=== PATIENT | female | born 1995 | race Caucasian/White ===

== ENCOUNTER 2019-10-12 18:16 | Outpatient (CLI) | payer SELFPAY ==
[2019-10-12] VITALS (16 sets, daily range): BP systolic 0–135; BP diastolic 0–86; PULSE 78–98; RESP 16–18; TEMP 36.9–37.1; BMI 29.0
[2019-10-12] MEDS: lactated ringers 1,000 ML 999 ML IV (18:35)
[2019-10-12] MEDS: miSOPROStol 200 mcg Tablet 800 MCG PR (18:43)
[2019-10-12 18:57] LABS: Basophils % 0.2 %; Eosinophils % 0.3 %; Hematocrit 39.9 % (37.0-47.0); Hemoglobin 13.6 g/dL (11.5-15.3); Lymphocytes % 16.8 %; Mean Corpuscular HGB Conc 34.1 g/dL (30.0-36.0); Mean Corpuscular Hemoglobin 29.3 pg (28.0-34.0); Mean Platelet Volume 10.7 fL (7.4-10.4); Monocytes # 0.9 10^3/uL (0.2-0.9); Monocytes % 7.6 %; Neutrophils # 8.7 10^3/uL (1.8-7.7); Neutrophils % 74.7 %; Nucleated Red Blood Cells % 0 %; Platelet Count 255 10^3/cmm (130-400); Red Blood Count 4.64 10^6/uL (4.1-5.3); Red Cell Distribution Width 13.3 % (12.1-15.1); White Blood Count 11.6 10^3/uL (4.0-10.0)
--- NOTE | 2019-10-12 19:16 | PC.NURSE ---
Previous documentation per Olivia Brown RN incorrect. IV started in left AC at 1820, and right hand at 1835. Fluids running in left AC site, right site PIID.
[2019-10-12] MEDS: lactated ringers 1,000 ML 125 ML IV (19:39)
== END 2019-10-12 21:40 | disposition home or self-care (01) ==
LOC: OPOB 18:29 → OBGYN 20:46 → OPOB 10-13 09:03
PROVIDERS: Visit Provider Obstetrics & Gynecology
DX: O46.90 Antepartum hemorrhage, unspecified, unspecified trimester (principal); Z3A.00 Weeks of gestation of pregnancy not specified
CPT/HCPCS: 36415; 85025; 86850; 86900

== ENCOUNTER 2024-06-10 05:43 | Emergency (ER) | payer SELFPAY ==
[2024-06-10] VITALS (7 sets, daily range): BP systolic 116–147; BP diastolic 73–82; PULSE 65–102; RESP 16; TEMP 37; O2SAT 98–100; BMI 25.0
--- NOTE | 2024-06-10 05:57 | ED_ITS ---
HPI - 2 General: Chief complaint: OB/Uterine Contractions Stated complaint: 12 Weeks Preg\Bleeding Time Seen by Provider: 06/10/24 05:50 History of Present Illness: 28-year-old female G7, P6 006, presents to the ER with complaints of 1 week of vaginal bleeding. Clinical records patient is blood type B-. She has an LMP of March 10, 2024 manage 2012 weeks 1 day. She has not had an ultrasound. No formal OB care. She reports bleeding for the last week it has decreased somewhat. No complications with previous however there is 1 visit to OB infection some bleeding but it is difficult to assess cannot find a specific complaint this time presentation in the notes from that visit. Date of Last Menstrual Period: 03/10/24 Associated symptoms: Deny abdominal pain or dysuria Related Data Home Medications Medication Instructions Recorded Confirmed No Known Home Medications 10/12/19 06/10/24 Allergies Allergy/AdvReac Type Severity Reaction Status Date / Time No Known Allergies Allergy Verified 10/12/19 18:51 Review of Systems 2 Const: Denies: fever(s) or chills Card: Denies: chest pain Resp: Denies: dyspnea GI: Denies: abdominal pain : Denies: dysuria, urinary frequency or urinary urgency Musc: Denies: neck pain or back pain Skin/Breast: Denies: rash [facility] ED 2 Female Reproductive History: Date of last menstrual period: 03/10/24 Physical Exam 2 Const: COMMON NORMALS: no acute distress GENERAL APPEARANCE: cooperative and comfortable ORIENTATION/CONSCIOUSNESS: Yes awake, Yes oriented to person, Yes oriented to place and Yes oriented to time HENMT: COMMON NORMALS: normocephalic, atraumatic and hearing grossly normal bilaterally HEAD & SCALP: normocephalic and atraumatic Resp: COMMON NORMALS: normal respiratory effort, No retractions, No use of accessory muscles and clear to auscultation bilaterally AUSCULTATION: clear to auscultation bilaterally Cardio: COMMON NORMALS: regular rate, regular rhythm and No murmurs present (Cardio) RATE: regular rate RHYTHM: regular rhythm Extremity: COMMON NORMALS: normal to inspection, capillary refill normal, no clubbing, cyanosis or edema, no calf tenderness and no pedal edema Neuro: SENSORIUM/ORIENTATION: Yes oriented to person, Yes oriented to place and Yes oriented to time Skin: COMMON NORMALS: no rashes or lesions noted GENERAL SKIN EXAM: no rashes or lesions noted Course 2 Vital Signs: Vital signs: Vital Signs Temperature 98.6 F 06/10/24 05:45 Pulse Rate 98 06/10/24 10:17 Respiratory Rate 16 06/10/24 10:17 Blood Pressure 116/73 06/10/24 10:17 Pulse Oximetry 98 06/10/24 10:17 Oxygen Delivery Me thod Room Air 06/10/24 10:11 MDM - OB/Uterine Contractions Medical Decision Making Report from intact on the ultrasound no intrauterine contents no gestational sac or pole. Beta-hCG is at 15,000. Will repeat pelvic ultrasound by transvaginal probe. Discussed with the patient. Concerning for possible ectopic Transvaginal ultrasound of the pelvis no evidence of ectopic . I discussed with Dr. Sherman. She did not note anything concerning for ectopic she did feel there was some retained products of conception from miscarriage intrauterine. Reviewed case with on-call physician For OB Dr. Muller he he recommends that we have her follow-up with her beta-hCG towards the end of the week. Patient but she will likely further cramping and bleeding. We did give her RhoGAM shot as well today. Medical Records I reviewed the patient's medical records. Lab Data I reviewed the patient's lab results. 06/10/24 05:55 06/10/24 05:55 Radiology Impressions Obstetrics Ultrasound 06/10/24 06:36 IMPRESSION: 1. Markedly thickened heterogeneous endometrium. Most consistent with retained products of the conception. There is no gestational sac. 2. No adnexal mass identified or free fluid. 3. With an elevated beta-hCG ectopic is not excluded. Recommend continued correlation with decreasing beta hCG levels. If beta-hCG levels did not decrease follow-up transvaginal pelvic imaging should be obtained. Laboratory Results WBC 7.20 10^3/uL (3.29-11.43) 06/10/24 05:55 RBC 5.03 10^6/uL (3.85-5.65) 06/10/24 05:55 Hgb 14.00 g/dL (11.27-16.99) 06/10/24 05:55 Hct 42.6 % (36-47) 06/10/24 05:55 MCV 84.7 fl (85-98) L 06/10/24 05:55 MCH 27.8 pg (27-33) 06/10/24 05:55 MCHC 32.9 g/dL (30-55) 06/10/24 05:55 RDW 12.7 % (12.1-15.1) 06/10/24 05:55 Plt Count 250 10^3/cmm (157-399) 06/10/24 05:55 MPV 10.1 fL (7.4-10.4) 06/10/24 05:55 Neut % (Auto) 59.9 % 06/10/24 05:55 Lymph % (Auto) 26.8 % 06/10/24 05:55 Cloud % (Auto) 6.3 % 06/10/24 05:55 Eos % (Auto) 6.1 % 06/10/24 05:55 Baso % (Auto) 0.6 % 06/10/24 05:55 Neut # (Auto) 4.32 10^3/uL (1.8-7.7) 06/10/24 05:55 Lymph # (Auto) 1.9 10^3/uL (0.8-4.8) 06/10/24 05:55 Cloud # (Auto) 0.5 10^3/uL (0.2-0.9) 06/10/24 05:55 Eos # (Auto) 0.4 10^3/uL (0.0-0.8) 06/10/24 05:55 Baso # (Auto) 0.0 10^3/uL (0.0-0.1) 06/10/24 05:55 Nucleated RBC % (auto) 0 % 06/10/24 05:55 Nucleated RBCs # 0.0 /100WBC 06/10/24 05:55 Sodium 138 mmol/L (136-145) 06/10/24 05:55 Potassium 4.0 mmol/L (3.5-5.1) 06/10/24 05:55 Chloride 104 mmol/L (98-107) 06/10/24 05:55 Carbon Dioxide 24 mmol/L (22-29) 06/10/24 05:55 Anion Gap 14.0 (5-19) 06/10/24 05:55 BUN 7 mg/dL (6-20) 06/10/24 05:55 Creatinine 0.5 mg/dL (0.5-0.9) 06/10/24 05:55 GFR Calculation 145.9 mL/min (90-130) H 06/10/24 05:55 Glucose 106 mg/dL (65-115) 06/10/24 05:55 Calculated Osmolality 284 mOsm/kg (285-295) L 06/10/24 05:55 Calcium 9.4 mg/dL (8.5-10.5) 06/10/24 05:55 Total Bilirubin 0.4 mg/dL (0.15-1.2) 06/10/24 05:55 AST 15 U/L (0-32) 06/10/24 05:55 ALT 14 U/L (0-33) 06/10/24 05:55 Alkaline Phosphatase 72 U/L (35-105) 06/10/24 05:55 Total Protein 7.8 g/dL (6.6-8.7) 06/10/24 05:55 Albumin 4.7 g/dL (3.5-5.2) 06/10/24 05:55 Globulin 3.1 g/dL (1.3-4.6) 06/10/24 05:55 Ser , Semi-Qnt 12525.00 mIU/mL 06/10/24 05:55 Urine Color Yellow (Yellow) 06/10/24 05:55 Urine Appearance Clear (CLEAR) 06/10/24 05:55 Urine pH 6.5 (5-7) 06/10/24 05:55 Ur Specific [place] 1.002 (1.005-1.030) L 06/10/24 05:55 Urine Protein Negative (Negative) 06/10/24 05:55 Urine Glucose (UA) Negative (Normal) 06/10/24 05:55 Urine Ketones Negative (Negative) 06/10/24 05:55 Urine Blood 3+ (Negative) A 06/10/24 05:55 Urine Nitrate Negative (Negative) 06/10/24 05:55 Urine Bilirubin Negative (Negative) 06/10/24 05:55 Urine Urobilinogen 0.2 mg/dL (Negative) 06/10/24 05:55 Ur Leukocyte Esterase Negative (Negative) 06/10/24 05:55 Urine RBC 0-2 /hpf (0-2) 06/10/24 05:55 Urine WBC 0-5 /hpf (0-5) 06/10/24 05:55 Ur Squamous Epith Cells 0-5 /hpf (0-5) 06/10/24 05:55 Amorphous Sediment Not Reportable 06/10/24 05:55 Urine Bacteria None seen /hpf (NONE) 06/10/24 05:55 Hyaline Casts 0-4 /lpf H 06/10/24 05:55 All radiology interpretation(s) finalized by discharge Discharge Plan Discharge Patient Disposition: Home Clinical Impression: Spontaneous miscarriage Condition: Stable Prescriptions: No Action No Known Home Medications Discharge Orders: Discharge ED (Routine); Ordered 06/10/24 Ordered By: Jose Montelongo Referrals: Willian Muller MD [Physician] - (Follow-up with the end of this week for repeat beta-hCG and evaluation) Discharge Diet: Usual diet Discharge Activity: Resume usual activity Patient Instructions: Opioid Safety, Pain Management Activity Restrictions/Additional Instructions: Thank you for choosing [facility] for your healthcare needs today. It is very important that you follow up as instructed or that you return to the Emergency Department should you have concerns or if your condition changes or worsens in any way. You were seen this morning for complaints of vaginal bleeding at approximately 13 weeks gestation. Beta-hCG is at the low end of normal for age gestation ultrasound shows what appears to be retained products of conception from a miscarriage. On the ultrasound done today there is no sign of ectopic . Since your blood type is Rh- you were given RhoGAM. It is very important that you have a follow-up beta-hCG done at Dr. Muller's office at the end of the week. Coding Level of Care Code ED [employer] for [employer]
[2024-06-10 06:04] LABS: Charge for UA Resulting for Rev
[2024-06-10 06:15] LABS: Basophils % 0.6 %; Eosinophils # 0.4 10^3/uL (0.0-0.8); Eosinophils % 6.1 %; Hematocrit 42.6 % (36-47); Lymphocytes # 1.9 10^3/uL (0.8-4.8); Lymphocytes % 26.8 %; Mean Corpuscular HGB Conc 32.9 g/dL (30-55); Mean Corpuscular Hemoglobin 27.8 pg (27-33); Mean Corpuscular Volume 84.7 fl (85-98); Mean Platelet Volume 10.1 fL (7.4-10.4); Monocytes # 0.5 10^3/uL (0.2-0.9); Monocytes % 6.3 %; Neutrophils # 4.32 10^3/uL (1.8-7.7); Neutrophils % 59.9 %; Nucleated Red Blood Cells % 0 %; Platelet Count 250 10^3/cmm (157-399); Red Blood Count 5.03 10^6/uL (3.85-5.65); Red Cell Distribution Width 12.7 % (12.1-15.1)
[2024-06-10 06:29] LABS: Alanine Aminotransferase 14 U/L (0-33); Albumin Level 4.7 g/dL (3.5-5.2); Alkaline Phosphatase 72 U/L (35-105); Aspartate Amino Transferase 15 U/L (0-32); Blood Urea Nitrogen 7 mg/dL (6-20); Calcium 9.4 mg/dL (8.5-10.5); Carbon Dioxide 24 mmol/L (22-29); Chloride 104 mmol/L (98-107); Creatinine Clr Calc Pharmacy 172.9488; Globulin 3.1 g/dL (1.3-4.6); Glomerular Filtration Rate 145.9 mL/min (90-130); Glucose 106 mg/dL (65-115); Osmolality Calculated 284 mOsm/kg (285-295); Sodium 138 mmol/L (136-145); Total Bilirubin 0.4 mg/dL (0.15-1.2); Total Protein 7.8 g/dL (6.6-8.7)
--- NOTE | 2024-06-10 06:36 | US_ITS ---
WS: [id number] Obstetrical ultrasound, first trimester. HISTORY: Vaginal bleeding. Elevated beta hCG. Transabdominal and transvaginal imaging is submitted. Uterus is anteverted and slightly enlarged measuring 13.1 x 6.3 x 7.0 cm. No fibroid identified. Endo metrium is markedly thickened and heterogeneous. There is increased echogenicity with a few scattered cystic areas. No pole or cardiac activity is identified. There is no distal normal appearing g estational sac. Endometrium measures 2.7 cm. RIGHT ovary measures 2.4 x 1.6 x 2.4 cm. The LEFT ovary is not identified. There is no free fluid in the pelvis or cul-de-sac. No adnexal masses. No fluid in Morison's pouch. US/US OB lmt with transvaginal IMPRESSION: 1. Markedly thickened heterogeneous endometrium. Most consistent with retained products of the conception. There is no gestational sac. 2. No adnexal mass identified or free fluid. 3. With an elevated beta-hCG ectopic is not excluded. Recommend continued corre lation with decreasing beta hCG levels. If beta-hCG levels did not decrease fol low-up transvaginal pelvic imaging should be obtained.
[2024-06-10 07:26] LABS: Bacteria Urine None Seen /hpf; Hyaline Casts Urine 0-4 /lpf; RBC Urine 0-2 /hpf (0-2); Squamous Epithelial Cell Urine 0-5 /hpf (0-5); WBC Urine 0-5 /hpf (0-5)
[2024-06-10 07:31] LABS: Bilirubin Urine Negative (Negative); Blood Urine 3+ (Negative); Glucose Urine UA Negative (Normal); Ketones Urine Negative (Negative); Leukocyte Esterase Urine Negative (Negative); Nitrate Urine Negative (Negative); Protein Urine Negative (Negative); Specific Gravity, Urine 1.002 (1.005-1.030); Urine Appearance Clear (CLEAR); Urine Color Yellow (Yellow); Urobilinogen Urine 0.2 mg/dL (Negative); pH Urine 6.5 (5-7)
[2024-06-10 07:32] LABS: Add Urine Culture? No
--- NOTE | 2024-06-10 09:40 | DCPLANNER ---
Message sent to OBGYN for follow up with Dr. Muller this week.
[2024-06-10] MEDS: rho(d) immune globulin 1,500 unit Syringe 1500 UNIT IM (09:50)
== END 2024-06-10 10:19 | disposition home or self-care (01) ==
PROVIDERS: Emergency Provider Family Medicine
DX: O03.9 Complete or unspecified spontaneous abortion without complication (principal)
CPT/HCPCS: 76815; 76817; 80053; 81003; 81015; 84702; 85025; 96372; 99284; J2790

== ENCOUNTER → 2024-06-17 15:36 | Outpatient (BNVA) | payer SELFPAY | PROVIDERS: Visit Provider Obstetrics & Gynecology | DX: O03.9 Complete or unspecified spontaneous abortion without complication (principal) | CPT/HCPCS: 84702 ==